=== PATIENT | male | born 1970 | race Caucasian/White ===

== ENCOUNTER 2021-04-11 14:46 | Emergency (ER) | payer OTHER, SELFPAY ==
[2021-04-11 15:06] VITALS: BP 118/74; PULSE 64; RESP 18; TEMP 36.6; O2SAT 100
[2021-04-11 15:14] VITALS: BP 118/74; PULSE 64; RESP 18; TEMP 36.6; O2SAT 100
--- NOTE | 2021-04-11 16:10 | ED.GENADULT ---
HPI - General Adult General Chief complaint: Recheck/Abnormal Lab/Rx Stated complaint: refill Time Seen by Provider: 04/11/21 16:10 Source: patient and RN notes reviewed Mode of arrival: ambulatory Limitations: no limitations History of Present Illness HPI narrative: 50-year-old male presents with complaints of trouble sleeping and feeling anxious for the past 10-11 days. ?Young reports he is here working and finds it hard dealing being without family at times and working late hours (undergraduate internship). ?History of anxiety and depression. Stressors working away from family, decreasing alcohol intake, and working late nights as a undergraduate internship. ?Denies SI/HI, auditory or visual hallucination. Denies obstructive sleep apnea or restless leg syndrome. ?Denies dyspnea or chest pain. ?Denies abdominal pain, nausea, and vomiting. Tolerating po intake well. Remains active. ?The patient reports he has not been diagnosed with COVID-19.? The patient reports he received the Terrajoule COVID-19 vaccine. The patient reports he is not waiting for the results of a COVID-19 lab test.? The patient reports he does not have fever, chills, weakness, or fatigue.? The patient reports he does not have a new or worsening cough or shortness of breath. The patient reports he does not have any rhinorrhea, congestion, sore throat, loss of taste or smell, and diarrhea. ?Denies recent traveling.? Denies concerns for COVID-19 or exposures.? At this time, the patient is not suspected of having COVID-19. ? Some parts of this dictation were generated by voice recognition software and may contain typographical and/or grammatical inaccuracies. Related Data Allergies Allergy/AdvReac Type Severity Reaction Status Date / Time No Known Allergies Allergy Verified 04/11/21 15:11 Review of Systems Review of Systems: Narrative: CONSTITUTIONAL: Denies fever, chills, sweats. EYES: Denies visual changes, redness, discharge. ENT: Denies rhinorrhea, congestion, sore throat, otalgia. CARDIOVASCULAR: Denies chest pain, palpitations, edema. RESPIRATORY: Denies dyspnea, wheezing, cough. GASTROINTESTINAL: Denies abdominal pain, nausea, vomiting, diarrhea. SKIN: Denies rash or itching. MUSCULOSKELETAL: Denies acute back pain, joint pain, or myalgia. NEUROLOGIC: Denies numbness or focal weakness. PSYCHIATRIC: Denies SI/HI, auditory or visual hallucination, depression, feelings of guilt, worthlessness, or hopelessness. Complaints of trouble sleeping and feeling anxious. All other systems reviewed are negative, except as documented in HPI and below. PMFSH Past Medical History Medical History Anxiety Depression Surgical History Surgical History Hx of appendectomy Family History Family History Father Lung cancer Mother Alive and well Social History Social History Smoking status: Current every day smoker Tobacco type: cigarettes Second hand tobacco smoke exposure: No Alcohol intake: current Substance use: current Substance use type: marijuana Gender identity (if verbalized by the patient): Male Comments At time of signature, agree with the nurse past medical, surgical, social, and family history. There is relevant patient's history pertinent to the presenting complaint, no relevant family history pertinent to the presenting complaint. Exam Narrative: Exam Narrative: GENERAL: This is a well-nourished, well-developed patient, in no apparent distress. Talks in full sentences and ambulates with steady gait without dyspnea. HEAD: Normocephalic, atraumatic. EYES: PERRL. Sclera clear/white. Vision is grossly intact. THROAT: Mucous membranes moist, posterior pharynx clear. NECK: Neck supple, non-tender without lymphadenopathy, masses, or thyromegal
== END 2021-04-11 16:33 | disposition home or self-care (01) ==
PROVIDERS: Emergency Provider Nurse Practitioner Family
DX: F41.9 Anxiety disorder, unspecified (principal)
CPT/HCPCS: 99211; G0463

== ENCOUNTER 2021-04-12 16:03 | Emergency (ER) | payer OTHER, SELFPAY ==
[2021-04-12 16:14] VITALS: BP 121/77; PULSE 93; RESP 20; TEMP 37.7; O2SAT 97
--- NOTE | 2021-04-12 16:33 | ED.URI ---
HPI - URI/Sore Throat General Chief Complaint: Upper Respiratory Infection Stated Complaint: Sore Throat Time Seen by Provider: 04/12/21 16:34 Source: patient Mode of arrival: ambulatory Limitations: no limitations History of Present Illness HPI Narrative: Young Romo is a 50 yo male with a PMH of anxiety depression who comes to ask breast care with complaints of a severe sore throat and inability to swallow inability to take fluids-patient is febrile, states feels poorly. Was seen here yesterday with and was asymptomatic for this particular complaint but patient looks very ill today [place] Related Data Allergies Allergy/AdvReac Type Severity Reaction Status Date / Time No Known Allergies Allergy Verified 04/11/21 15:11 Review of Systems Review of Systems: Narrative: CONSTITUTIONAL: Has fever, chills, sweats. Looks like he feels poorly EYES: Denies visual changes, redness, discharge. ENT: Denies rhinorrhea, congestion, has sore throat, otalgia. CARDIOVASCULAR: Denies chest pain, palpitations, edema. RESPIRATORY: Denies dyspnea, wheezing, cough GASTROINTESTINAL: Denies abdominal pain, nausea, vomiting, diarrhea. GENITOURINARY: Denies dysuria, hematuria, abnormal discharge SKIN: Denies rash or itching. NEUROLOGIC: Denies numbness, or focal weakness. PSYCHIATRIC: Denies anxiety or depression. PMFSH Past Medical History Medical History Anxiety Depression Surgical History Surgical History Hx of appendectomy Family History Family History Father Lung cancer Mother Alive and well Social History Social History Smoking status: Current every day smoker Tobacco type: cigarettes Second hand tobacco smoke exposure: No Alcohol intake: current Substance use: current Substance use type: marijuana Gender identity (if verbalized by the patient): Male Comments At time of signature, I agree with nursing past medical, surgical, social and family history. There is no relevant family history pertinent to the presenting complaint. Exam Narrative: Exam Narrative: GENERAL: This is a well-nourished, well-developed patient, in mild distress. HEAD: normocephalic, atraumatic. EYES: Sclera clear/white. Vision is grossly intact. EARS: External ears normal, . Hearing grossly intact. NOSE: External nose normal without nasal discharge, nares without redness, no rhinorrhea. THROAT: Mucous membranes dry, posterior pharynx erythema NECK: Neck supple, mild tenderness CARDIOVASCULAR: Regular rate and rhythm without murmurs, gallops, or rubs. RESPIRATORY: Clear to auscultation. Breath sounds equal bilaterally. No wheezes, rales, or rhonchi. GASTROINTESTINAL: Abdomen soft, SKIN: warm, intact with no suspicious lesions or rash, good texture and turgor. NEURO: awake, alert, and oriented to person, place and time. There were no obvious focal neurologic abnormalities. Steady gait EXTREMITIES: Normal range of motion. BACK: Nontender without deformity Course Course Emergency Course: Patient comes to [facility] for treatment of pharyngitis and feeling poorly Test was negative Given Toradol and Solu-Medrol here Started on prednisone Delsym-as Mucinex at home Vital Signs Vital signs: Vital Signs Temperature 99.9 F H 04/12/21 16:14 Pulse Rate 93 04/12/21 16:14 Respiratory Rate 20 04/12/21 16:14 Blood Pressure 121/77 04/12/21 16:14 Pulse Oximetry 97 04/12/21 16:14 Temperature 99.9 F H 04/12/21 16:14 Pulse Rate 93 04/12/21 16:14 Respiratory Rate 20 04/12/21 16:14 Blood Pressure 121/77 04/12/21 16:14 Pulse Oximetry 97 04/12/21 16:14 MDM - URI/Sore Throat Differential Diagnosis Differential diagnosis:
[2021-04-12] MEDS: KETOROLAC 30 MG/ML VIAL (*BKC) IM (16:55)
[2021-04-12] MEDS: methylPREDNISolone ACETATE 80 MG/ML VIAL IM (16:56)
== END 2021-04-12 17:12 | disposition home or self-care (01) ==
PROVIDERS: Emergency Provider Nurse Practitioner
DX: J02.9 Acute pharyngitis, unspecified (principal); R50.9 Fever, unspecified; F17.210 Nicotine dependence, cigarettes, uncomplicated
CPT/HCPCS: 87081; 87880; 96372; 99214; G0463; J1040; J1885

== ENCOUNTER 2021-07-11 11:24 | Emergency (ER) | payer OTHER, SELFPAY ==
[2021-07-11 11:38] VITALS: BP 115/87; PULSE 108; RESP 16; TEMP 36.7; O2SAT 98
--- NOTE | 2021-07-11 11:44 | ED.SKABFB ---
HPI - Skin/Abscess/Foreign Bdy General Chief complaint: Skin/Abscess/Foreign Body Stated complaint: Sores on legs Time Seen by Provider: 07/11/21 11:45 Source: patient and RN notes reviewed Mode of arrival: ambulatory Limitations: no limitations History of Present Illness HPI narrative: 50-year-old male presents to the [facility] with multiple wounds to the lower left leg. Anterior mid persaud measures 8 x 8 that is red, warm to touch mildly raised. No fluctuant areas noted. Multiple other scabbed over areas to the foot and posterior leg no larger than 1 cm in diameter without fluctuance. Patient has a history of MRSA. Has been pouring peroxide on a daily to heal it, no other treatment Related Data Home Medications Medication Instructions Recorded Confirmed buspirone [BuSpar] 10 mg PO BID 07/11/21 07/11/21 topiramate [Topamax] 25 mg PO BID 07/11/21 07/11/21 Allergies Allergy/AdvReac Type Severity Reaction Status Date / Time No Known Allergies Allergy Verified 07/11/21 11:46 Review of Systems Review of Systems: All systems reviewed & are unremarkable except as noted in HPI and below Constitutional: Constitutional: Reports no additional constitutional complaints, Denies chills and Denies fever(s) Eyes: Eyes: Reports no additional eye complaints Cardiovascular: Cardiovascular: Reports no additional cardiovascular complaints and Denies chest pain Respiratory: Respiratory: Reports no additional respiratory complaints and Denies cough Gastrointestinal: Gastrointestinal: Reports no additional gastrointestinal complaints Musculoskeletal: Musculoskeletal: Reports no additional musculoskeletal complaints Integumentary/Breasts: Skin/Breast: Reports as per HPI Neurologic: Reports system reviewed and no additional complaints, except as documented Psychiatric: Psychiatric: Reports no additional psychiatric complaints Allergic/Immunologic: Allergic/Immunologic: Reports no additional allergic/immunologic complaints [facility] Past Medical History Medical History (Updated 07/11/21 @ 19:40 by Karis Camilo) Anxiety Depression Fracture of leg Right with surgical repair Surgical History Surgical History Hx of appendectomy Family History Family History Father Lung cancer Mother Alive and well Social History Social History (Updated 07/11/21 @ 11:57 by Karis Camilo) Smoking status: Current every day smoker Tobacco type: cigarettes Second hand tobacco smoke exposure: No Alcohol intake: current Alcohol use details: Young reports he has decreased his alcohol intake. Reports occasional Substance use: current Substance use type: marijuana Other substance usage details: Occasional use Living arrangements: with family Occupation/Education: occupation Gender identity (if verbalized by the patient): Male Sexual Orientation (if Verbalized by the Patient): Straight or Heterosexual Comments At the time of my signature, I reviewed and agree with the nursing past medical, surgical, social, and family history. There is no relevant family history pertinent to the patient complaint. Exam Const: General: no acute distress and ill appearing chronically Nutritional Appearance: thin Orientation/consciousness: patient oriented x3 Limitations: no limitations HENMT: Head: normal to inspection Eyes: Conjunctivae: conjunctivae normal Pupils: Equal, round and reactive pupils present Neck: Neck: normal visual inspection, no lymphadenopathy and no meningeal signs Chest: Chest palpation & inspection: normal inspection of the chest Resp: Effort & Inspection: normal respiratory effort Auscultation: clear to auscultation bilaterally Cardio: Rate: regular rate Rhythm: regular rhythm Back/Spine/Pelvis: Back: no CVA tenderness Skin: Wounds: wounds noted (Multiple scabbed areas to the left
== END 2021-07-11 12:20 | disposition home or self-care (01) ==
PROVIDERS: Emergency Provider Nurse Practitioner
DX: L03.116 Cellulitis of left lower limb (principal); F17.210 Nicotine dependence, cigarettes, uncomplicated; F41.9 Anxiety disorder, unspecified; F32.9 Major depressive disorder, single episode, unspecified
CPT/HCPCS: 99213; G0463

== ENCOUNTER 2022-04-18 09:34 | Emergency (ER) | payer OTHER, SELFPAY ==
[2022-04-18 09:43] VITALS: BP 119/69; PULSE 99; RESP 16; TEMP 37.2; O2SAT 97
--- NOTE | 2022-04-18 09:47 | ED.SKABFB ---
HPI - Skin/Abscess/Foreign Bdy General Chief complaint: Skin/Abscess/Foreign Body Stated complaint: non healing wounds/nausea Time Seen by Provider: 04/18/22 09:47 Source: patient Mode of arrival: ambulatory Limitations: no limitations History of Present Illness HPI narrative: 51 y/o male presented for c/o rash to body surface stating he had MRSA a year ago and started the same way. Endorses multiple open lesions across body surface, some lesions are itchy. He denies any pain or active drainage. Denies change to soap, detergent etc. Denies insect bites. No one in the house with similar symptoms. He has not done anything for symptoms. He does not have a PCP. Denies IVDA. PEPPER. complaint: rash Related Data Allergies Allergy/AdvReac Type Severity Reaction Status Date / Time No Known Allergies Allergy Verified 04/18/22 09:46 Review of Systems Review of Systems: CONSTITUTIONAL: Denies body aches, fever, chills, or sweats. CARDIOVASCULAR: Denies chest pain, palpitations, or edema. RESPIRATORY: Denies cough or dyspnea. GASTROINTESTINAL: Denies abdominal pain, nausea, vomiting, or diarrhea. SKIN: endorses open wounds MUSCULOSKELETAL: Denies back pain, joint pain, or myalgia. NEUROLOGIC: Denies headache, numbness, tingling, or weakness. [facility] Past Medical History Medical History Anxiety Depression Fracture of leg Right with surgical repair Surgical History Surgical History Hx of appendectomy Family History Family History Father Lung cancer Mother Alive and well Social History Social History Smoking status: Current every day smoker Tobacco type: cigarettes Second hand tobacco smoke exposure: No Alcohol intake: current Alcohol use details: Young reports he has decreased his alcohol intake. Reports occasional Substance use: current Substance use type: marijuana Other substance usage details: Occasional use Gender identity (if verbalized by the patient): Male Sexual Orientation (if Verbalized by the Patient): Straight or Heterosexual Comments At time of signature, I have reviewed and agree with nursing past medical, surgical, social and family history unless otherwise noted. Please see nursing chart for further information. There is no relevant family history pertinent to the presenting complaint Exam Narrative: GENERAL: no acute distress. ENT: Mucous membranes moist. Oropharynx without edema, erythema or lesions. NECK: Supple. No lymphadenopathy CHEST: Clear to auscultation. No respiratory distress. HEART: Regular rate and rhythm. SKIN: Warm, dry. diffuse open areas across body surface, no active drainage to sites, range from 3mm to 0.5cm diameter with surrounding erythema NEURO: Alert and oriented x3. PSYCH: appears anxious Course Course Emergency Course: Patient is aware of diagnosis, understands and agrees to treatment plan. Anticipatory guidance given. Patient agrees to follow-up as directed and is aware of reasons to seek care at the emergency department. Portions of this record may have been created with voice recognition software Level of Care: Express Care Visit Vital Signs Vital signs: Vital Signs Temperature 99.0 F 04/18/22 09:43 Pulse Rate 99 04/18/22 09:43 Respiratory Rate 16 04/18/22 09:43 Blood Pressure 119/69 04/18/22 09:43 Pulse Oximetry 97 04/18/22 09:43 Oxygen Delivery Room Air 04/18/22 09:43 Temperature 99.0 F 04/18/22 09:43 Pulse Rate 99 04/18/22 09:43 Respiratory Rate 16 04/18/22 09:43 Blood Pressure 119/69 04/18/22 09:43 Pulse Oximetry 97 04/18/22 09:43 Oxygen Delivery Room Air 04/18/22 09:43 Reviewed MDM - Skin/Abscess/Foreign Bdy MDM Narrative Medical decisio
== END 2022-04-18 10:03 | disposition home or self-care (01) ==
PROVIDERS: Emergency Provider Nurse Practitioner Family
DX: L30.9 Dermatitis, unspecified (principal); F17.210 Nicotine dependence, cigarettes, uncomplicated
CPT/HCPCS: 99213; G0463